=== PATIENT | male | born 1950 | race Asian ===

== ENCOUNTER → 2016-07-30 | Outpatient (CLI) | payer MEDICARE ==
[~2016-07-30] MED LIST: COLC0.6T69 PO; NAPR-58 PO; NAPR220T57 PO
[2016-07-30 14:46] LABS: BASOPHILS % (AUTO) 0.5 % (0.0-2.0); EOSINOPHILS % (AUTO) 1.7 % (1.0-6.0); LYMPHOCYTES # (AUTO) 0.6 K/uL (1.0-4.8); LYMPHOCYTES % (AUTO) 11.6 % (22.0-44.0); MEAN CORPUSCULAR HEMOGLOBIN 28.3 pg (26.0-34.0); MEAN CORPUSCULAR HGB CONC 31.9 G/dL (31.0-37.0); MEAN CORPUSCULAR VOLUME 89 fL (80-100); MONOCYTES # (AUTO) 0.7 K/uL (0.1-1.0); MONOCYTES % (AUTO) 12.7 % (2.0-9.0); NEUTROPHILS # (AUTO) 3.9 K/uL (1.8-7.7); NEUTROPHILS % (AUTO) 73.5 % (40.0-70.0); PLATELET COUNT (AUTO) 169 K/uL (150-450); RED BLOOD CELL COUNT(AUTO) 4.95 MIL/uL (4.50-5.90); RED CELL DISTRIBUTION WIDTH 19.4 % (11.5-14.5); WHITE BLOOD COUNT (AUTO) 5.3 K/uL (4.5-11.0)
[2016-07-30 14:48] LABS: ADD UA MICROSCOPIC YES; APPEARANCE,URINE CLEAR (CLEAR); GLUCOSE, URINE (UA) NEGATIVE (NEGATIVE); KETONES,URINE NEGATIVE (NEGATIVE); LEUKOCYTE ESTERASE ,URINE NEGATIVE (NEGATIVE); OCCULT BLOOD,URINE TRACE (NEGATIVE); PH,URINE 5.5 (5.0-8.0); PROTEIN,URINE POS 1+ (NEGATIVE)
[2016-07-30 14:52] LABS: RBC,URINE 0-2 /HPF (0-2); WBC,URINE 0-2 /HPF (0-5)
[2016-07-30 14:58] LABS: ALBUMIN 3.5 g/dL (3.4-5.0); CALCIUM, TOTAL 8.7 mg/dL (8.8-10.5); CREATININE 3.06 mg/dL (0.60-1.30); PHOSPHORUS 6.6 mg/dL (2.5-4.9); POTASSIUM 5.2 mmol/L (3.5-5.1)
[2016-07-30 15:31] LABS: RBC MORPHOLOGY COMMENT ABNORMAL RBC MORPH
[2016-07-30 16:14] LABS: URIC ACID 15.5 mg/dL (2.6-7.2)
[2016-07-31 18:20] LABS: CREATININE, URINE (mALB) 89.6 mg/dL (Not Estab.)
== END | disposition home or self-care (01) ==
LOC: LABPV 11:40
PROVIDERS: ATTEND Internal Medicine Nephrology
DX: I10 Essential (primary) hypertension (principal); N40.0 Benign prostatic hyperplasia without lower urinary tract symptoms; M1A.00X0 Idiopathic chronic gout, unspecified site, without tophus (tophi)
CPT/HCPCS: 82043; 82570; 84550

== ENCOUNTER → 2016-09-13 | Outpatient (CLI) | payer MEDICARE ==
[2016-09-13 15:18] LABS: ALBUMIN 3.6 g/dL (3.4-5.0); BILIRUBIN,TOTAL 1.8 mg/dL (0.1-1.0); CALCIUM, TOTAL 9.2 mg/dL (8.8-10.5); CHOL/HDL RATIO 3.9 (4.2-7.3); CREATININE 2.11 mg/dL (0.60-1.30); PHOSPHORUS 4.8 mg/dL (2.5-4.9); POTASSIUM 5.3 mmol/L (3.5-5.1); TOTAL PROTEIN, SERUM 7.7 g/dL (6.4-8.2)
== END | disposition home or self-care (01) ==
LOC: LABPV 11:25
PROVIDERS: ATTEND Internal Medicine Nephrology
DX: I10 Essential (primary) hypertension (principal); N40.0 Benign prostatic hyperplasia without lower urinary tract symptoms; M1A.00X0 Idiopathic chronic gout, unspecified site, without tophus (tophi); E55.9 Vitamin D deficiency, unspecified
CPT/HCPCS: 81050; 82306; 82575; 83970; 84100; 84156; 84300

== ENCOUNTER → 2016-10-20 | Outpatient (CLI) | payer MEDICARE ==
[2016-10-20 11:31] LABS: CALCIUM, TOTAL 8.4 mg/dL (8.8-10.5); CREATININE 2.77 mg/dL (0.60-1.30); PHOSPHORUS 5.7 mg/dL (2.5-4.9); POTASSIUM 4.4 mmol/L (3.5-5.1); URIC ACID 6.8 mg/dL (2.6-7.2)
[2016-10-21 10:43] LABS: ALBUMIN (IFE & ELECTROPHOR) 3.9 g/dL (2.9-4.4); ALBUMIN/GLOBULIN RATIO (IFE) 1.2 (0.7-1.7); ALPHA-2 (IFE & PEP) 0.5 g/dL (0.4-1.0); IGG (IMMUNOFIXATION) 1482 mg/dL (700-1600); M-SPIKE (IEP) Not Observed g/dL (Not Observed); TOTAL PROTEIN 7.2 g/dL (6.0-8.5)
[2016-10-21 12:20] LABS: BETA URINE 17.9 %; GAMMA URINE 18.1 %; TOTAL PROTEIN URINE 69.1 mg/dL (Not Estab.); UPEP M-SPIKE % Not Observed % (Not Observed)
[2016-10-22 08:40] LABS: COMPLEMENT C3 110 mg/dL (82-167); COMPLEMENT C4 23 mg/dL (14-44)
== END | disposition home or self-care (01) ==
LOC: LABPV 09:37
PROVIDERS: ATTEND Internal Medicine Nephrology
DX: I12.9 Hypertensive chronic kidney disease with stage 1 through stage 4 chronic kidney disease, or unspecified chronic kidney disease (principal); N18.3 Chronic kidney disease, stage 3 (moderate); N40.0 Benign prostatic hyperplasia without lower urinary tract symptoms
CPT/HCPCS: 82784; 84100; 84155; 84156; 84165; 84166; 84550; 86160; 86334; 86335

== ENCOUNTER → 2016-11-18 | Outpatient (CLI) | payer MEDICARE | END | disposition home or self-care (01) | LOC: RADPV 10:22 | PROVIDERS: ATTEND Internal Medicine Nephrology | DX: R18.8 Other ascites (principal); N26.1 Atrophy of kidney (terminal); K82.8 Other specified diseases of gallbladder | CPT/HCPCS: 76700 ==

== ENCOUNTER → 2016-11-22 | Outpatient (CLI) | payer MEDICARE ==
[2016-11-22 12:04] LABS: CREATININE 2.06 mg/dL (0.60-1.30); POTASSIUM 4.7 mmol/L (3.5-5.1)
[2016-11-22 12:05] LABS: ALBUMIN 3.6 g/dL (3.4-5.0); BILIRUBIN,TOTAL 1.7 mg/dL (0.1-1.0); CALCIUM, TOTAL 8.9 mg/dL (8.8-10.5); TOTAL PROTEIN, SERUM 7.7 g/dL (6.4-8.2)
== END | disposition home or self-care (01) ==
LOC: LABPV 09:18
PROVIDERS: ATTEND Internal Medicine Nephrology
DX: I12.9 Hypertensive chronic kidney disease with stage 1 through stage 4 chronic kidney disease, or unspecified chronic kidney disease (principal); N18.3 Chronic kidney disease, stage 3 (moderate); N40.0 Benign prostatic hyperplasia without lower urinary tract symptoms; E55.9 Vitamin D deficiency, unspecified
CPT/HCPCS: 81050; 82575; 84156; 84300

== ENCOUNTER → 2016-12-02 | Outpatient (CLI) | payer MEDICARE | END | disposition home or self-care (01) | LOC: RADPV 09:15 | PROVIDERS: ATTEND Family Medicine | DX: I51.7 Cardiomegaly (principal); I70.0 Atherosclerosis of aorta | CPT/HCPCS: 71020 ==

== ENCOUNTER → 2016-12-20 | Outpatient (CLI) | payer MEDICARE ==
[~2016-12-20] MED LIST changes: +ALLO100T PO; +FURO20TA4 PO
[2016-12-20 16:30] LABS: ALBUMIN 3.4 g/dL (3.4-5.0); BILIRUBIN,TOTAL 1.5 mg/dL (0.1-1.0); CALCIUM, TOTAL 8.7 mg/dL (8.8-10.5); CREATININE 2.07 mg/dL (0.60-1.30); POTASSIUM 4.2 mmol/L (3.5-5.1); TOTAL PROTEIN, SERUM 7.7 g/dL (6.4-8.2)
[2016-12-20 17:18] LABS: BASOPHILS % (AUTO) 0.8 % (0.0-2.0); EOSINOPHILS % (AUTO) 6.1 % (1.0-6.0); HEMATOCRIT 33.8 % (41-53); HEMOGLOBIN 10.9 g/dL (13.5-17.5); LYMPHOCYTES # (AUTO) 0.6 K/uL (1.0-4.8); LYMPHOCYTES % (AUTO) 10.4 % (22.0-44.0); MEAN CORPUSCULAR HEMOGLOBIN 30.9 pg (26.0-34.0); MEAN CORPUSCULAR HGB CONC 32.3 G/dL (31.0-37.0); MEAN CORPUSCULAR VOLUME 96 fL (80-100); MONOCYTES # (AUTO) 0.5 K/uL (0.1-1.0); MONOCYTES % (AUTO) 8.8 % (2.0-9.0); NEUTROPHILS % (AUTO) 73.9 % (40.0-70.0); PLATELET COUNT (AUTO) 214 K/uL (150-450); RED BLOOD CELL COUNT(AUTO) 3.54 MIL/uL (4.50-5.90); RED CELL DISTRIBUTION WIDTH 21.4 % (11.5-14.5); WHITE BLOOD COUNT (AUTO) 5.4 K/uL (4.5-11.0)
[2016-12-20 17:30] LABS: INR 1.1 (0.9-1.1)
[2016-12-20 18:12] LABS: RBC MORPHOLOGY COMMENT ABNORMAL RBC MORPH
[2016-12-21 07:21] LABS: HEPATITIS Bs ANTIGEN SCREEN P Negative (Negative); HEPATITIS C AB SCREEN <0.1 s/co ratio (0.0-0.9)
== END | disposition home or self-care (01) ==
LOC: LABPV 15:19
PROVIDERS: ATTEND Internal Medicine Gastroenterology
DX: K70.0 Alcoholic fatty liver (principal); K74.5 Biliary cirrhosis, unspecified; K80.51 Calculus of bile duct without cholangitis or cholecystitis with obstruction; K76.6 Portal hypertension
CPT/HCPCS: 80074; 81256; 82103; 82105; 82390

== ENCOUNTER → 2017-03-14 | Outpatient (CLI) | payer MEDICARE ==
[~2017-03-14] MED LIST changes: +COLC0.6T67 PO; -COLC0.6T69 PO; -NAPR-58 PO; -NAPR220T57 PO
[2017-03-14 13:58] LABS: CREATININE,URINE RANDOM 18.3 mg/dL (30.0-125.0)
[2017-03-14 14:22] LABS: CALCIUM, TOTAL 8.8 mg/dL (8.8-10.5); CREATININE 1.81 mg/dL (0.60-1.30); PHOSPHORUS 4.8 mg/dL (2.5-4.9); POTASSIUM 4.4 mmol/L (3.5-5.1)
== END | disposition home or self-care (01) ==
LOC: LABPV 13:10
PROVIDERS: ATTEND Internal Medicine Nephrology
DX: N18.3 Chronic kidney disease, stage 3 (moderate) (principal); E55.9 Vitamin D deficiency, unspecified
CPT/HCPCS: 82306; 82570; 84100; 84156

== ENCOUNTER → 2017-06-16 | Outpatient (CLI) | payer MEDICARE ==
[2017-06-16 11:38] LABS: ALBUMIN 3.9 g/dL (3.4-5.0); BILIRUBIN,TOTAL 0.4 mg/dL (0.1-1.0); CALCIUM, TOTAL 9.4 mg/dL (8.8-10.5); CHOL/HDL RATIO 3.7 (4.2-7.3); CREATININE 2.56 mg/dL (0.60-1.30); PHOSPHORUS 5.2 mg/dL (2.5-4.9); POTASSIUM 5.2 mmol/L (3.5-5.1); TOTAL PROTEIN, SERUM 8.7 g/dL (6.4-8.2)
[2017-06-16 11:41] LABS: APPEARANCE,URINE CLEAR (CLEAR); BILIRUBIN,URINE NEGATIVE (NEGATIVE); GLUCOSE, URINE (UA) NEGATIVE (NEGATIVE); KETONES,URINE NEGATIVE (NEGATIVE); LEUKOCYTE ESTERASE ,URINE NEGATIVE (NEGATIVE); NITRATE,URINE NEGATIVE (NEGATIVE); OCCULT BLOOD,URINE NEGATIVE (NEGATIVE); PH,URINE 5.5 (5.0-8.0); PROTEIN,URINE TRACE (NEGATIVE); UROBILINOGEN,URINE 0.2 mg/dL (<=1.0)
== END | disposition home or self-care (01) ==
LOC: LABPV 10:52
PROVIDERS: ATTEND Internal Medicine Nephrology
DX: N18.3 Chronic kidney disease, stage 3 (moderate) (principal); I42.9 Cardiomyopathy, unspecified; E78.5 Hyperlipidemia, unspecified
CPT/HCPCS: 84100

== ENCOUNTER → 2017-08-10 | Outpatient (CLI) | payer MEDICARE ==
[2017-08-10 14:38] LABS: CREATININE,URINE RANDOM 63.1 mg/dL (30.0-125.0)
[2017-08-10 14:54] LABS: ALBUMIN 3.8 g/dL (3.4-5.0); BILIRUBIN,TOTAL 0.5 mg/dL (0.1-1.0); CALCIUM, TOTAL 9.3 mg/dL (8.8-10.5); CREATININE 1.99 mg/dL (0.60-1.30); POTASSIUM 4.5 mmol/L (3.5-5.1); TOTAL PROTEIN, SERUM 8.1 g/dL (6.4-8.2)
== END | disposition home or self-care (01) ==
LOC: LABPV 11:00
PROVIDERS: ATTEND Internal Medicine Nephrology
DX: I12.9 Hypertensive chronic kidney disease with stage 1 through stage 4 chronic kidney disease, or unspecified chronic kidney disease (principal); N18.3 Chronic kidney disease, stage 3 (moderate); N40.0 Benign prostatic hyperplasia without lower urinary tract symptoms; E55.9 Vitamin D deficiency, unspecified
CPT/HCPCS: 82306; 82570; 84156

== ENCOUNTER → 2017-12-01 | Outpatient (CLI) | payer MEDICARE ==
[2017-12-01 10:24] LABS: ALBUMIN 3.8 g/dL (3.4-5.0); BILIRUBIN,TOTAL 0.5 mg/dL (0.1-1.0); CALCIUM, TOTAL 9.1 mg/dL (8.8-10.5); CREATININE 2.67 mg/dL (0.60-1.30); POTASSIUM 4.9 mmol/L (3.5-5.1); TOTAL PROTEIN, SERUM 8.3 g/dL (6.4-8.2)
== END | disposition home or self-care (01) ==
LOC: LABPV 09:35
PROVIDERS: ATTEND Internal Medicine Nephrology
DX: N18.3 Chronic kidney disease, stage 3 (moderate) (principal); E55.9 Vitamin D deficiency, unspecified; M1A.00X0 Idiopathic chronic gout, unspecified site, without tophus (tophi)
CPT/HCPCS: 82306

== ENCOUNTER → 2018-09-11 | Outpatient (CLI) | payer MEDICARE ==
[2018-09-11 14:10] LABS: CREATININE,URINE RANDOM 98.2 mg/dL (30.0-125.0); PROTEIN,URINE RANDOM 34 mg/dL (0-11.9)
[2018-09-11 14:14] LABS: ALBUMIN 3.6 g/dL (3.4-5.0); BILIRUBIN,TOTAL 1.1 mg/dL (0.1-1.0); CALCIUM, TOTAL 8.6 mg/dL (8.8-10.5); CHOL/HDL RATIO 4.1 (4.2-7.3); CREATININE 4.79 mg/dL (0.60-1.30); POTASSIUM 5.2 mmol/L (3.5-5.1); TOTAL PROTEIN, SERUM 7.2 g/dL (6.4-8.2)
[2018-09-11 14:41] LABS: APPEARANCE,URINE CLEAR (CLEAR); BILIRUBIN,URINE NEGATIVE (NEGATIVE); GLUCOSE, URINE (UA) NEGATIVE (NEGATIVE); KETONES,URINE NEGATIVE (NEGATIVE); LEUKOCYTE ESTERASE ,URINE TRACE (NEGATIVE); NITRATE,URINE NEGATIVE (NEGATIVE); OCCULT BLOOD,URINE SMALL (NEGATIVE); PROTEIN,URINE NEGATIVE (NEGATIVE); UROBILINOGEN,URINE 0.2 mg/dL (<=1.0)
[2018-09-11 14:49] LABS: BACTERIA,URINE None Seen /HPF (None Seen); WBC,URINE 0-2 /HPF (0-5)
== END | disposition home or self-care (01) ==
LOC: LABPV 09:37
PROVIDERS: ATTEND Internal Medicine Nephrology
DX: E55.9 Vitamin D deficiency, unspecified (principal); I12.9 Hypertensive chronic kidney disease with stage 1 through stage 4 chronic kidney disease, or unspecified chronic kidney disease; E11.22 Type 2 diabetes mellitus with diabetic chronic kidney disease; N18.3 Chronic kidney disease, stage 3 (moderate); E78.49 Other hyperlipidemia
CPT/HCPCS: 82306; 82570; 83970; 84156

== ENCOUNTER 2018-10-03 12:48 | Inpatient (IN) | payer MEDICARE ==
[~2018-10-03] VITALS: Ht 162.6 cm; Wt 81.2 kg
[2018-10-03] MEDS ORDERED: AMLO-511 PO (13:35)
[2018-10-03] MEDS ORDERED: CARV3 PO (13:35)
[2018-10-03] MEDS ORDERED: SODI650T PO (13:35)
[2018-10-03] MEDS ORDERED: ASPI81 PO (13:35)
[2018-10-03 15:06] LABS: BASOPHILS % (AUTO) 0.8 % (0.0-2.0); EOSINOPHILS % (AUTO) 12.6 % (1.0-6.0); HEMATOCRIT 35.3 % (41-53); HEMOGLOBIN 11.1 g/dL (13.5-17.5); LYMPHOCYTES # (AUTO) 0.6 K/uL (1.0-4.8); LYMPHOCYTES % (AUTO) 13.7 % (22.0-44.0); MEAN CORPUSCULAR HEMOGLOBIN 29.8 pg (26.0-34.0); MEAN CORPUSCULAR HGB CONC 31.5 G/dL (31.0-37.0); MEAN CORPUSCULAR VOLUME 95 fL (80-100); MONOCYTES # (AUTO) 0.5 K/uL (0.1-1.0); MONOCYTES % (AUTO) 11.2 % (2.0-9.0); NEUTROPHILS # (AUTO) 2.9 K/uL (1.8-7.7); NEUTROPHILS % (AUTO) 61.7 % (40.0-70.0); PLATELET COUNT (AUTO) 146 K/uL (150-450); RED BLOOD CELL COUNT(AUTO) 3.73 MIL/uL (4.50-5.90); RED CELL DISTRIBUTION WIDTH 17.4 % (11.5-14.5)
[2018-10-03 15:16] LABS: ALBUMIN 3.7 g/dL (3.4-5.0); BILIRUBIN,TOTAL 1.2 mg/dL (0.1-1.0); CALCIUM, TOTAL 8.8 mg/dL (8.8-10.5); CREATININE 4.47 mg/dL (0.60-1.30); POTASSIUM 5.9 mmol/L (3.5-5.1); TOTAL PROTEIN, SERUM 7.9 g/dL (6.4-8.2)
[2018-10-03 15:58] LABS: APPEARANCE,URINE CLEAR (CLEAR); BILIRUBIN,URINE NEGATIVE (NEGATIVE); GLUCOSE, URINE (UA) NEGATIVE (NEGATIVE); KETONES,URINE NEGATIVE (NEGATIVE); LEUKOCYTE ESTERASE ,URINE NEGATIVE (NEGATIVE); NITRATE,URINE NEGATIVE (NEGATIVE); OCCULT BLOOD,URINE NEGATIVE (NEGATIVE); PROTEIN,URINE NEGATIVE (NEGATIVE); UROBILINOGEN,URINE 0.2 mg/dL (<=1.0)
[2018-10-03 16:21] LABS: BACTERIA,URINE Few /HPF (None Seen); RBC,URINE 0-2 /HPF (0-2); SQUAMOUS EPITHELIAL CELL,UR Few /LPF (None Seen); WBC,URINE 0-2 /HPF (0-5)
[2018-10-03 16:22] LABS: INR 1.1 (0.9-1.1)
[2018-10-03] MEDS ORDERED: SODIUM POLYSTYRENE SULFONATE 15 GM/60 ML SUSPENSION BOTTLE PO ONE (16:45)
[2018-10-03] MEDS: ALBUMIN HUMAN 25%-25GM/100ML 100 ML IV SCH ×2 (17:18→23:41)
[2018-10-03 18:27] VITALS: BP 154/101
[2018-10-03] MEDS ORDERED: MORPHINE SULFATE 2 MG/ML SYRINGE IVP PRN (19:30)
[2018-10-03] MEDS ORDERED: IPRATROPIUM BROMIDE 0.5 MG/2.5 ML NEB SOLUTION NEB PRN (19:30)
[2018-10-03] MEDS ORDERED: MAGNESIUM HYDROXIDE SUSPENSION 30 ML UDCUP PO PRN (19:30)
[2018-10-03] MEDS ORDERED: ONDANSETRON HCL 4 MG/2 ML VIAL IVP PRN (19:30)
[2018-10-03] MEDS ORDERED: BISACODYL 10 MG RECTAL RECTAL SUPPOSITORY PR PRN (19:30)
[2018-10-03] MEDS ORDERED: ALBUTEROL SULFATE 2.5 MG/0.5 ML NEB SOLUTION NEB PRN (19:30)
[2018-10-03] MEDS ORDERED: ACETAMINOPHEN 325 MG TABLET PO PRN (19:30)
[2018-10-03] MEDS ORDERED: ZOLPIDEM TARTRATE 5 MG TABLET PO PRN (19:30)
[2018-10-03] MEDS ORDERED: HYDROCODONE/ACETAMINOPHEN 5-325 MG TABLET PO PRN (19:30)
[2018-10-03] MEDS ORDERED: BUMETANIDE 0.25 MG/ML 4 ML VIAL IVP SCH (21:00)
[2018-10-03 22:00] VITALS: BP 153/112
[2018-10-03] MEDS: COLCHICINE 0.6 MG TABLET PO SCH (23:01)
[2018-10-03] MEDS: DOCUSATE SODIUM 100 MG CAPSULE PO SCH (23:01)
[2018-10-03] MEDS: CARVEDILOL 3.125 MG TABLET PO SCH (23:01)
[2018-10-03] MEDS: SODIUM BICARBONATE 650 MG TABLET PO SCH (23:02)
[2018-10-03] MEDS: BUMETANIDE 0.25 MG/ML 10 ML VIAL IV SCH (23:03)
[2018-10-03] MEDS: HEPARIN SODIUM,PORCINE 5,000 UNITS/ML VIAL SQ SCH (23:05)
[2018-10-04] MEDS ORDERED: PNEUMOCOCCAL VACCINE POLYVALENT 0.5 ML VIAL [PPSV23] IM ONE (03:30)
[2018-10-04 03:55] VITALS: BP 144/96
[2018-10-04] MEDS: ALBUMIN HUMAN 25%-25GM/100ML 100 ML IV SCH ×4 (04:55→22:22)
[2018-10-04 08:33] VITALS: BP 154/88
[2018-10-04] MEDS: ASPIRIN 81 MG CHEWABLE TABLET PO SCH (08:44)
[2018-10-04] MEDS: FUROSEMIDE 20 MG TABLET PO SCH (08:44)
[2018-10-04] MEDS: HEPARIN SODIUM,PORCINE 5,000 UNITS/ML VIAL SQ SCH ×2 (08:45→16:00)
[2018-10-04] MEDS: DOCUSATE SODIUM 100 MG CAPSULE PO SCH ×3 (08:45→20:14)
[2018-10-04] MEDS: PANTOPRAZOLE SODIUM 40 MG/VIAL IVP SCH (08:47)
[2018-10-04] MEDS: BUMETANIDE 0.25 MG/ML 10 ML VIAL IV SCH ×2 (08:47→20:05)
[2018-10-04] MEDS: AmLODIPine BESYLATE 5 MG TABLET PO SCH (08:49)
[2018-10-04] MEDS: SODIUM BICARBONATE 650 MG TABLET PO SCH ×2 (08:49→20:05)
[2018-10-04] MEDS: ALLOPURINOL 100 MG TABLET PO SCH (08:51)
[2018-10-04] MEDS: COLCHICINE 0.6 MG TABLET PO SCH ×2 (08:51→20:05)
[2018-10-04] MEDS: CARVEDILOL 3.125 MG TABLET PO SCH ×2 (08:52→20:05)
[2018-10-04 12:00] LABS: SPECIMENTYPE,BODY FLUID ASCITES
[2018-10-04 12:36] LABS: APPEARANCE,SPUN,BODY FLUID CLEAR (CLEAR); APPEARANCE,UNSPUN,BODY FLUID HAZY (CLEAR); COLOR,BODY FLUID ORANGE (LT YELLOW); TOTAL VOLUME,BODY FLUID 2950 mL
[2018-10-04 13:07] LABS: BASOPHILS,BODY FLUID 0 %; EOSINOPHILS,BF (ANAL) 0 %; LYMPHOCYTES,BODY FLUID 58 %; MONOCYTES,BODY FLUID 31 %; NEUTROPHILS,BODY FLUID 11 %; WBC, BODY FLUID 50 /cu. mm.
[2018-10-04 16:24] VITALS: BP 138/80
[2018-10-04 20:15] VITALS: BP 133/87
[2018-10-04 23:49] LABS: APPEARANCE,URINE CLEAR (CLEAR); BILIRUBIN,URINE NEGATIVE (NEGATIVE); GLUCOSE, URINE (UA) NEGATIVE (NEGATIVE); KETONES,URINE NEGATIVE (NEGATIVE); LEUKOCYTE ESTERASE ,URINE NEGATIVE (NEGATIVE); NITRATE,URINE NEGATIVE (NEGATIVE); OCCULT BLOOD,URINE NEGATIVE (NEGATIVE); PROTEIN,URINE NEGATIVE (NEGATIVE); UROBILINOGEN,URINE 0.2 mg/dL (<=1.0)
[2018-10-04 23:53] LABS: CREATININE,URINE RANDOM 47.2 mg/dL (30.0-125.0); SODIUM,URINE RANDOM 82 mmol/l (20-110); UREA NITROGEN,URINE RANDOM 355 mg/dL (350-1000)
[2018-10-05] LABS: BACTERIA,URINE None Seen /HPF (None Seen); RBC,URINE None Seen /HPF (0-2); SQUAMOUS EPITHELIAL CELL,UR Rare /LPF (None Seen); WBC,URINE 0-2 /HPF (0-5)
[2018-10-05] MEDS: HEPARIN SODIUM,PORCINE 5,000 UNITS/ML VIAL SQ SCH ×3 (00:23→15:19)
[2018-10-05 00:33] VITALS: BP 146/72
[2018-10-05] MEDS: ALBUMIN HUMAN 25%-25GM/100ML 100 ML IV SCH (04:33)
[2018-10-05 05:27] VITALS: BP 141/74
[2018-10-05 06:06] LABS: BASOPHILS % (AUTO) 2.6 % (0.0-2.0); EOSINOPHILS % (AUTO) 11.3 % (1.0-6.0); HEMATOCRIT 31.8 % (41-53); HEMOGLOBIN 10.2 g/dL (13.5-17.5); LYMPHOCYTES # (AUTO) 0.5 K/uL (1.0-4.8); LYMPHOCYTES % (AUTO) 14.8 % (22.0-44.0); MEAN CORPUSCULAR HEMOGLOBIN 30.6 pg (26.0-34.0); MEAN CORPUSCULAR HGB CONC 32.2 G/dL (31.0-37.0); MEAN CORPUSCULAR VOLUME 95 fL (80-100); MONOCYTES # (AUTO) 0.4 K/uL (0.1-1.0); MONOCYTES % (AUTO) 12.9 % (2.0-9.0); NEUTROPHILS % (AUTO) 58.4 % (40.0-70.0); PLATELET COUNT (AUTO) 128 K/uL (150-450); RED BLOOD CELL COUNT(AUTO) 3.35 MIL/uL (4.50-5.90); RED CELL DISTRIBUTION WIDTH 17.2 % (11.5-14.5)
[2018-10-05 06:27] LABS: ALBUMIN 4.5 g/dL (3.4-5.0); BILIRUBIN,TOTAL 1.4 mg/dL (0.1-1.0); CALCIUM, TOTAL 8.6 mg/dL (8.8-10.5); CREATININE 4.48 mg/dL (0.60-1.30); POTASSIUM 4.2 mmol/L (3.5-5.1); TOTAL PROTEIN, SERUM 7.5 g/dL (6.4-8.2)
[2018-10-05 07:41] VITALS: BP 148/83
[2018-10-05] MEDS: PANTOPRAZOLE SODIUM 40 MG/VIAL IVP SCH (08:20)
[2018-10-05] MEDS: BUMETANIDE 0.25 MG/ML 10 ML VIAL IV SCH ×2 (08:21→21:12)
[2018-10-05] MEDS: ASPIRIN 81 MG CHEWABLE TABLET PO SCH (08:21)
[2018-10-05] MEDS: COLCHICINE 0.6 MG TABLET PO SCH ×2 (08:23→21:11)
[2018-10-05] MEDS: AmLODIPine BESYLATE 5 MG TABLET PO SCH (08:23)
[2018-10-05] MEDS: ALLOPURINOL 100 MG TABLET PO SCH (08:24)
[2018-10-05] MEDS: SODIUM BICARBONATE 650 MG TABLET PO SCH ×2 (08:24→21:10)
[2018-10-05] MEDS: CARVEDILOL 3.125 MG TABLET PO SCH ×2 (08:24→21:00)
[2018-10-05] MEDS: DOCUSATE SODIUM 100 MG CAPSULE PO SCH ×2 (08:25→21:00)
[2018-10-05] MEDS: FUROSEMIDE 20 MG TABLET PO SCH (08:26)
[2018-10-05] MEDS ORDERED: METOLAZONE 5 MG TABLET PO ONE (09:15)
[2018-10-05 11:12] VITALS: BP 127/75
[2018-10-05 15:55] VITALS: BP 124/70
[2018-10-05 20:25] VITALS: BP 123/69
[2018-10-06] MEDS: HEPARIN SODIUM,PORCINE 5,000 UNITS/ML VIAL SQ SCH ×3 (00:18→16:00)
[2018-10-06 00:47] VITALS: BP 140/86
[2018-10-06 05:00] VITALS: BP 138/76
[2018-10-06 07:16] LABS: BASOPHILS % (AUTO) 0.8 % (0.0-2.0); EOSINOPHILS % (AUTO) 10.6 % (1.0-6.0); HEMATOCRIT 30.5 % (41-53); HEMOGLOBIN 9.5 g/dL (13.5-17.5); LYMPHOCYTES # (AUTO) 0.5 K/uL (1.0-4.8); LYMPHOCYTES % (AUTO) 14.8 % (22.0-44.0); MEAN CORPUSCULAR HEMOGLOBIN 29.8 pg (26.0-34.0); MEAN CORPUSCULAR VOLUME 96 fL (80-100); MONOCYTES # (AUTO) 0.5 K/uL (0.1-1.0); MONOCYTES % (AUTO) 12.9 % (2.0-9.0); NEUTROPHILS # (AUTO) 2.2 K/uL (1.8-7.7); NEUTROPHILS % (AUTO) 60.9 % (40.0-70.0); PLATELET COUNT (AUTO) 142 K/uL (150-450); RED BLOOD CELL COUNT(AUTO) 3.18 MIL/uL (4.50-5.90); RED CELL DISTRIBUTION WIDTH 17.9 % (11.5-14.5)
[2018-10-06 07:44] VITALS: BP 165/97
[2018-10-06 07:44] LABS: ALBUMIN 4.1 g/dL (3.4-5.0); BILIRUBIN,TOTAL 1.1 mg/dL (0.1-1.0); CALCIUM, TOTAL 8.6 mg/dL (8.8-10.5); CREATININE 4.76 mg/dL (0.60-1.30); MAGNESIUM 2.2 mg/dL (1.80-2.40); POTASSIUM 4.3 mmol/L (3.5-5.1)
[2018-10-06 08:05] LABS: PHOSPHORUS 9.5 mg/dL (2.5-4.9)
[2018-10-06] MEDS: ALLOPURINOL 100 MG TABLET PO SCH (08:18)
[2018-10-06] MEDS: COLCHICINE 0.6 MG TABLET PO SCH ×2 (08:18→22:01)
[2018-10-06] MEDS: AmLODIPine BESYLATE 5 MG TABLET PO SCH (08:19)
[2018-10-06] MEDS: ASPIRIN 81 MG CHEWABLE TABLET PO SCH (08:19)
[2018-10-06] MEDS: DOCUSATE SODIUM 100 MG CAPSULE PO SCH ×2 (08:19→21:00)
[2018-10-06] MEDS: BUMETANIDE 0.25 MG/ML 10 ML VIAL IV SCH ×2 (08:21→22:01)
[2018-10-06] MEDS: PANTOPRAZOLE SODIUM 40 MG/VIAL IVP SCH (08:21)
[2018-10-06] MEDS: CARVEDILOL 3.125 MG TABLET PO SCH ×2 (08:22→22:01)
[2018-10-06 11:48] VITALS: BP 143/70
[2018-10-06] MEDS: SODIUM BICARBONATE 650 MG TABLET PO SCH ×2 (12:00→22:01)
[2018-10-06] MEDS: METOLAZONE 5 MG TABLET PO SCH (12:01)
[2018-10-06 13:11] LABS: CREATININE,URINE 39.4 mg/dL (30.0-125.0)
[2018-10-06 13:14] LABS: CREATININE,SERUM FOR CRCL 4.76 mg/dL (0.60-1.30)
[2018-10-06 15:48] VITALS: BP 127/69
[2018-10-06 20:44] VITALS: BP 114/44
[2018-10-07 00:44] VITALS: BP 137/79
[2018-10-07 04:05] VITALS: BP 135/73
[2018-10-07] MEDS: HEPARIN SODIUM,PORCINE 5,000 UNITS/ML VIAL SQ SCH ×3 (08:00→16:00)
[2018-10-07 08:32] VITALS: BP 119/70
[2018-10-07] MEDS: ALLOPURINOL 100 MG TABLET PO SCH (09:00)
[2018-10-07] MEDS: CARVEDILOL 3.125 MG TABLET PO SCH ×2 (09:00→20:47)
[2018-10-07] MEDS: PANTOPRAZOLE SODIUM 40 MG/VIAL IVP SCH (09:53)
[2018-10-07] MEDS: DOCUSATE SODIUM 100 MG CAPSULE PO SCH ×2 (09:54→20:48)
[2018-10-07] MEDS: METOLAZONE 5 MG TABLET PO SCH (09:54)
[2018-10-07] MEDS: ASPIRIN 81 MG CHEWABLE TABLET PO SCH (09:54)
[2018-10-07] MEDS: COLCHICINE 0.6 MG TABLET PO SCH (09:55)
[2018-10-07] MEDS: BUMETANIDE 0.25 MG/ML 10 ML VIAL IV SCH ×2 (10:08→20:48)
[2018-10-07] MEDS: AmLODIPine BESYLATE 5 MG TABLET PO SCH (10:37)
[2018-10-07] MEDS: SODIUM BICARBONATE 650 MG TABLET PO SCH ×2 (10:37→20:47)
[2018-10-07] MEDS: SEVELAMER CARBONATE 800 MG TABLET PO SCH ×2 (12:00→17:48)
[2018-10-07 15:43] VITALS: BP 139/77
[2018-10-07] MEDS ORDERED: LIDOCAINE/PF 1% 30 ML VIAL ONE (15:59)
[2018-10-07] MEDS ORDERED: HEPARIN SODIUM,PORCINE 1,000 UNITS/ML 10 ML VIAL ONE (15:59)
[2018-10-07 20:46] VITALS: BP 139/73
[2018-10-08 00:18] VITALS: BP 135/75
[2018-10-08 04:45] VITALS: BP 133/73
[2018-10-08] MEDS: HEPARIN SODIUM,PORCINE 5,000 UNITS/ML VIAL SQ SCH ×3 (08:00→16:00)
[2018-10-08 08:08] VITALS: BP 129/60
[2018-10-08] MEDS: SEVELAMER CARBONATE 800 MG TABLET PO SCH ×3 (08:19→17:45)
[2018-10-08] MEDS: SODIUM BICARBONATE 650 MG TABLET PO SCH (08:20)
[2018-10-08] MEDS: PANTOPRAZOLE SODIUM 40 MG/VIAL IVP SCH (08:20)
[2018-10-08] MEDS: DOCUSATE SODIUM 100 MG CAPSULE PO SCH ×2 (08:21→20:56)
[2018-10-08] MEDS: ALLOPURINOL 100 MG TABLET PO SCH (08:26)
[2018-10-08] MEDS: CARVEDILOL 3.125 MG TABLET PO SCH ×2 (09:00→20:56)
[2018-10-08 11:41] VITALS: BP 142/63
[2018-10-08 13:06] LABS: EOSINOPHILS % (AUTO) 12.2 % (1.0-6.0); HEMATOCRIT 30.2 % (41-53); HEMOGLOBIN 9.9 g/dL (13.5-17.5); LYMPHOCYTES # (AUTO) 0.5 K/uL (1.0-4.8); LYMPHOCYTES % (AUTO) 13.4 % (22.0-44.0); MEAN CORPUSCULAR HEMOGLOBIN 29.9 pg (26.0-34.0); MEAN CORPUSCULAR HGB CONC 32.6 G/dL (31.0-37.0); MEAN CORPUSCULAR VOLUME 92 fL (80-100); MONOCYTES # (AUTO) 0.5 K/uL (0.1-1.0); MONOCYTES % (AUTO) 13.1 % (2.0-9.0); NEUTROPHILS # (AUTO) 2.1 K/uL (1.8-7.7); NEUTROPHILS % (AUTO) 60.3 % (40.0-70.0); PLATELET COUNT (AUTO) 103 K/uL (150-450); RED CELL DISTRIBUTION WIDTH 16.6 % (11.5-14.5)
[2018-10-08 13:32] LABS: ALBUMIN 4.1 g/dL (3.4-5.0); BILIRUBIN,TOTAL 1.4 mg/dL (0.1-1.0); CALCIUM, TOTAL 8.4 mg/dL (8.8-10.5); CREATININE 4.45 mg/dL (0.60-1.30); POTASSIUM 4.2 mmol/L (3.5-5.1); TOTAL PROTEIN, SERUM 7.4 g/dL (6.4-8.2)
[2018-10-08] MEDS: AmLODIPine BESYLATE 5 MG TABLET PO SCH (15:09)
[2018-10-08] MEDS: ASPIRIN 81 MG CHEWABLE TABLET PO SCH (15:09)
[2018-10-08] MEDS: METOLAZONE 5 MG TABLET PO SCH (15:09)
[2018-10-08 16:09] VITALS: BP 145/78
[2018-10-08] MEDS ORDERED: HEPARIN SODIUM,PORCINE 1,000 UNITS/ML VIAL IVP ONE (17:50)
[2018-10-08 20:12] VITALS: BP 122/79
[2018-10-09] VITALS (8 sets, daily range): BP systolic 115–147; BP diastolic 58–74
[2018-10-09 06:07] LABS: BASOPHILS % (AUTO) 1.4 % (0.0-2.0); EOSINOPHILS % (AUTO) 13.3 % (1.0-6.0); HEMATOCRIT 28.2 % (41-53); HEMOGLOBIN 9.3 g/dL (13.5-17.5); LYMPHOCYTES # (AUTO) 0.6 K/uL (1.0-4.8); LYMPHOCYTES % (AUTO) 16.1 % (22.0-44.0); MEAN CORPUSCULAR HEMOGLOBIN 30.1 pg (26.0-34.0); MEAN CORPUSCULAR HGB CONC 32.8 G/dL (31.0-37.0); MEAN CORPUSCULAR VOLUME 92 fL (80-100); MONOCYTES # (AUTO) 0.7 K/uL (0.1-1.0); MONOCYTES % (AUTO) 16.9 % (2.0-9.0); NEUTROPHILS % (AUTO) 52.3 % (40.0-70.0); PLATELET COUNT (AUTO) 106 K/uL (150-450); RED BLOOD CELL COUNT(AUTO) 3.08 MIL/uL (4.50-5.90); RED CELL DISTRIBUTION WIDTH 15.9 % (11.5-14.5)
[2018-10-09 06:28] LABS: ALBUMIN 3.7 g/dL (3.4-5.0); BILIRUBIN,TOTAL 1.2 mg/dL (0.1-1.0); CALCIUM, TOTAL 8.4 mg/dL (8.8-10.5); CREATININE 4.31 mg/dL (0.60-1.30); POTASSIUM 3.8 mmol/L (3.5-5.1); TOTAL PROTEIN, SERUM 6.7 g/dL (6.4-8.2)
[2018-10-09] MEDS: HEPARIN SODIUM,PORCINE 5,000 UNITS/ML VIAL SQ SCH ×3 (08:00→16:00)
[2018-10-09] MEDS: METOLAZONE 5 MG TABLET PO SCH (08:19)
[2018-10-09] MEDS: CARVEDILOL 3.125 MG TABLET PO SCH ×2 (08:19→21:22)
[2018-10-09] MEDS: AmLODIPine BESYLATE 5 MG TABLET PO SCH (08:19)
[2018-10-09] MEDS: SEVELAMER CARBONATE 800 MG TABLET PO SCH ×3 (08:20→17:57)
[2018-10-09] MEDS: ASPIRIN 81 MG CHEWABLE TABLET PO SCH (08:21)
[2018-10-09] MEDS: ALLOPURINOL 100 MG TABLET PO SCH (08:21)
[2018-10-09] MEDS: PANTOPRAZOLE SODIUM 40 MG/VIAL IVP SCH (08:21)
[2018-10-09] MEDS: DOCUSATE SODIUM 100 MG CAPSULE PO SCH ×2 (08:22→21:00)
[2018-10-09] MEDS ORDERED: HEPARIN SODIUM,PORCINE 1,000 UNITS/ML VIAL IVP ONE (12:00)
[2018-10-09] MEDS ORDERED: SODIUM CHLORIDE 0.9% 2,000 ML IV ONE (12:16)
[2018-10-10 04:15] VITALS: BP 148/81
[2018-10-10 05:42] LABS: BASOPHILS % (AUTO) 1.2 % (0.0-2.0); EOSINOPHILS % (AUTO) 12.4 % (1.0-6.0); HEMATOCRIT 29.5 % (41-53); HEMOGLOBIN 9.8 g/dL (13.5-17.5); LYMPHOCYTES # (AUTO) 0.6 K/uL (1.0-4.8); LYMPHOCYTES % (AUTO) 13.2 % (22.0-44.0); MEAN CORPUSCULAR HEMOGLOBIN 30.5 pg (26.0-34.0); MEAN CORPUSCULAR HGB CONC 33.1 G/dL (31.0-37.0); MEAN CORPUSCULAR VOLUME 92 fL (80-100); MONOCYTES # (AUTO) 0.7 K/uL (0.1-1.0); MONOCYTES % (AUTO) 16.2 % (2.0-9.0); NEUTROPHILS # (AUTO) 2.6 K/uL (1.8-7.7); RED BLOOD CELL COUNT(AUTO) 3.21 MIL/uL (4.50-5.90); RED CELL DISTRIBUTION WIDTH 15.8 % (11.5-14.5)
[2018-10-10 05:53] LABS: ALBUMIN 3.7 g/dL (3.4-5.0); BILIRUBIN,TOTAL 1.1 mg/dL (0.1-1.0); CALCIUM, TOTAL 8.7 mg/dL (8.8-10.5); CREATININE 3.53 mg/dL (0.60-1.30); POTASSIUM 3.9 mmol/L (3.5-5.1); TOTAL PROTEIN, SERUM 7.1 g/dL (6.4-8.2)
[2018-10-10 07:15] LABS: PLATELET COUNT (AUTO) 91 K/uL (150-450)
[2018-10-10 07:49] VITALS: BP 130/75
[2018-10-10] MEDS: PANTOPRAZOLE SODIUM 40 MG/VIAL IVP SCH (08:00)
[2018-10-10] MEDS: HEPARIN SODIUM,PORCINE 5,000 UNITS/ML VIAL SQ SCH ×4 (08:00→23:45)
[2018-10-10] MEDS: METOLAZONE 5 MG TABLET PO SCH (08:02)
[2018-10-10] MEDS: CARVEDILOL 3.125 MG TABLET PO SCH ×2 (08:02→20:51)
[2018-10-10] MEDS: AmLODIPine BESYLATE 5 MG TABLET PO SCH (08:02)
[2018-10-10] MEDS: ASPIRIN 81 MG CHEWABLE TABLET PO SCH (08:03)
[2018-10-10] MEDS: SEVELAMER CARBONATE 800 MG TABLET PO SCH ×3 (08:03→18:24)
[2018-10-10] MEDS: ALLOPURINOL 100 MG TABLET PO SCH (08:04)
[2018-10-10] MEDS: DOCUSATE SODIUM 100 MG CAPSULE PO SCH ×2 (08:04→20:51)
[2018-10-10] MEDS: FUROSEMIDE 80 MG TABLET PO SCH ×2 (09:48→20:51)
[2018-10-10] MEDS: EPOETIN ALFA 10,000 UNITS/ML 2 ML VIAL SQ SCH (11:27)
[2018-10-10 11:34] VITALS: BP 125/70
[2018-10-10] MEDS ORDERED: HEPARIN SODIUM,PORCINE 1,000 UNITS/ML VIAL IVP ONE (12:00)
[2018-10-10 16:04] VITALS: BP 149/77
[2018-10-10 20:10] VITALS: BP 144/68
[2018-10-11 05:00] VITALS: BP 143/88
[2018-10-11 06:19] LABS: CALCIUM, TOTAL 8.7 mg/dL (8.8-10.5); MAGNESIUM 1.5 mg/dL (1.80-2.40); PHOSPHORUS 3.8 mg/dL (2.5-4.9); POTASSIUM 3.4 mmol/L (3.5-5.1)
[2018-10-11] MEDS ORDERED: MAGNESIUM OXIDE 400 MG TABLET PO ONE (07:45)
[2018-10-11 07:49] VITALS: BP 145/76
[2018-10-11] MEDS: HEPARIN SODIUM,PORCINE 5,000 UNITS/ML VIAL SQ SCH ×2 (08:00→15:40)
[2018-10-11] MEDS: ALLOPURINOL 100 MG TABLET PO SCH (08:40)
[2018-10-11] MEDS: AmLODIPine BESYLATE 5 MG TABLET PO SCH (08:41)
[2018-10-11] MEDS: DOCUSATE SODIUM 100 MG CAPSULE PO SCH ×2 (08:41→21:00)
[2018-10-11] MEDS: ASPIRIN 81 MG CHEWABLE TABLET PO SCH (08:41)
[2018-10-11] MEDS: CARVEDILOL 3.125 MG TABLET PO SCH ×2 (08:42→21:00)
[2018-10-11] MEDS: PANTOPRAZOLE SODIUM 40 MG/VIAL IVP SCH (08:42)
[2018-10-11] MEDS: SEVELAMER CARBONATE 800 MG TABLET PO SCH ×3 (08:44→18:00)
[2018-10-11] MEDS: EPOETIN ALFA 10,000 UNITS/ML 2 ML VIAL SQ SCH (08:47)
[2018-10-12] MEDS ORDERED: SODIUM CHLORIDE 0.9% 2,000 ML IV ONE (06:58)
[2018-10-12] MEDS: HEPARIN SODIUM,PORCINE 5,000 UNITS/ML VIAL SQ SCH ×3 (08:00→15:35)
[2018-10-12] MEDS: EPOETIN ALFA 10,000 UNITS/ML 2 ML VIAL SQ SCH (08:07)
[2018-10-12] MEDS: SEVELAMER CARBONATE 800 MG TABLET PO SCH ×3 (08:07→18:07)
[2018-10-12] MEDS: DOCUSATE SODIUM 100 MG CAPSULE PO SCH ×2 (08:15→20:18)
[2018-10-12] MEDS: PANTOPRAZOLE SODIUM 40 MG/VIAL IVP SCH (08:15)
[2018-10-12] MEDS: ALLOPURINOL 100 MG TABLET PO SCH (08:16)
[2018-10-12] MEDS: CARVEDILOL 3.125 MG TABLET PO SCH ×2 (09:00→20:18)
[2018-10-12 11:19] VITALS: BP 148/73
[2018-10-12] MEDS: ASPIRIN 81 MG CHEWABLE TABLET PO SCH (12:11)
[2018-10-12] MEDS: AmLODIPine BESYLATE 5 MG TABLET PO SCH (12:11)
[2018-10-12 15:18] VITALS: BP 126/85
[2018-10-12] MEDS ORDERED: HEPARIN SODIUM,PORCINE 1,000 UNITS/ML VIAL ONE (17:48)
[2018-10-12 20:30] VITALS: BP 116/75
[2018-10-13 07:52] VITALS: BP 120/69
[2018-10-13] MEDS: HEPARIN SODIUM,PORCINE 5,000 UNITS/ML VIAL SQ SCH ×3 (08:00→16:00)
[2018-10-13] MEDS: SEVELAMER CARBONATE 800 MG TABLET PO SCH ×2 (08:19→12:06)
[2018-10-13] MEDS: AmLODIPine BESYLATE 5 MG TABLET PO SCH (08:19)
[2018-10-13] MEDS: ASPIRIN 81 MG CHEWABLE TABLET PO SCH (08:19)
[2018-10-13] MEDS: DOCUSATE SODIUM 100 MG CAPSULE PO SCH (08:19)
[2018-10-13] MEDS: CARVEDILOL 3.125 MG TABLET PO SCH (08:19)
[2018-10-13] MEDS: PANTOPRAZOLE SODIUM 40 MG/VIAL IVP SCH (08:26)
[2018-10-13] MEDS: ALLOPURINOL 100 MG TABLET PO SCH (08:26)
[2018-10-13] MEDS ORDERED: ZARO5 PO (15:10)
[2018-10-13] MEDS ORDERED: SEVEC800 PO (15:10)
== END 2018-10-13 16:55 | disposition home or self-care (01) | DRG 673 ==
LOC: EMS 12:49 → AHU 16:56 → 5S 18:00 → AHU 18:06 → 5N 20:40 → 5S 21:26
PROVIDERS: ADMIT Hospitalist; ATTEND Hospitalist
PROC: 0W9G3ZZ Drainage of Peritoneal Cavity, Percutaneous Approach (ICD-10-PCS; 2018-10-04)
PROC: 5A1D70Z Performance of Urinary Filtration, Intermittent, Less than 6 Hours Per Day (ICD-10-PCS; 2018-10-06)
PROC: 0JH63XZ Insertion of Tunneled Vascular Access Device into Chest Subcutaneous Tissue and Fascia, Percutaneous Approach (ICD-10-PCS; principal; 2018-10-07)
PROC: 02H633Z Insertion of Infusion Device into Right Atrium, Percutaneous Approach (ICD-10-PCS; 2018-10-07)
PROC: B244ZZZ Ultrasonography of Right Heart (ICD-10-PCS; 2018-10-07)
PROC: 5A1D70Z Performance of Urinary Filtration, Intermittent, Less than 6 Hours Per Day (ICD-10-PCS; 2018-10-07)
PROC: 5A1D70Z Performance of Urinary Filtration, Intermittent, Less than 6 Hours Per Day (ICD-10-PCS; 2018-10-09)
PROC: 5A1D70Z Performance of Urinary Filtration, Intermittent, Less than 6 Hours Per Day (ICD-10-PCS; 2018-10-12)
DX: N17.9 Acute kidney failure, unspecified (principal); K76.7 Hepatorenal syndrome; I50.23 Acute on chronic systolic (congestive) heart failure; I13.2 Hypertensive heart and chronic kidney disease with heart failure and with stage 5 chronic kidney disease, or end stage renal disease; E44.0 Moderate protein-calorie malnutrition; E87.2 Acidosis; R18.8 Other ascites; I42.8 Other cardiomyopathies; N18.6 End stage renal disease; I27.20 Pulmonary hypertension, unspecified; E66.01 Morbid (severe) obesity due to excess calories; E87.5 Hyperkalemia; K74.60 Unspecified cirrhosis of liver; I35.0 Nonrheumatic aortic (valve) stenosis; D64.9 Anemia, unspecified; E11.22 Type 2 diabetes mellitus with diabetic chronic kidney disease; E87.6 Hypokalemia; Z53.20 Procedure and treatment not carried out because of patient's decision for unspecified reasons; Z99.2 Dependence on renal dialysis; Z79.899 Other long term (current) drug therapy; Z79.82 Long term (current) use of aspirin; Z91.19 Patient's noncompliance with other medical treatment and regimen; Z28.21 Immunization not carried out because of patient refusal; Z68.30 Body mass index [BMI] 30.0-30.9, adult
CPT/HCPCS: 36245; 36561; 49083; 76770; 76937; 76942; 81050; 82042; 82150; 82570; 82575; 82945; 83615; 83735; 84100; 84156; 84157; 84166; 84300; 84540; 87070; 87205; 87340; 89051; 93005; 93970; C9113; G0378; J0885; J1644; J2270; J3490; J7030; P9046

== ENCOUNTER 2019-01-10 11:37 | Day surgery (SDC) | payer MEDICARE, MEDICAID ==
[~2019-01-10] VITALS: Ht 162.6 cm; Wt 68.2 kg
[~2019-01-10 11:37] MED LIST changes: +AMLO5TAB9 PO; +ASPI81 PO; +CARV3 PO; -COLC0.6T67 PO; +COLC0.6T76 PO; -FURO20TA4 PO; +RINGERS SOLUTION,LACTATED 1,000 ML IV ONE; +SEVE800T17 PO; +SODIUM CHLORIDE 0.9% 1,000 ML IV ONE; +ZARO5 PO
[2019-01-10] MEDS ORDERED: SODIUM CHLORIDE 0.9% 1,000 ML IV ONE (11:45)
[2019-01-10] MEDS ORDERED: HEPARIN SODIUM 1000 UNITS/NS 500 ML ONE (11:47)
[2019-01-10] MEDS ORDERED: LIDOCAINE/PF 1% 30 ML VIAL ONE (11:47)
[2019-01-10] MEDS ORDERED: FentaNYL CITRATE-PF 100 MCG/2 ML VIAL IVP ONE (12:00)
[2019-01-10] MEDS ORDERED: KETAMINE HCL 50 MG/ML 10 ML VIAL IVP ONE (12:00)
[2019-01-10] MEDS ORDERED: 0.9% SODIUM CHLORIDE 10 ML VIAL IVP ONE (12:00)
[2019-01-10] MEDS ORDERED: LIDOCAINE/PF 2% 5 ML VIAL INJ ONE (12:00)
[2019-01-10] MEDS ORDERED: MIDAZOLAM HCL 2 MG/2 ML VIAL IVP ONE (12:00)
[2019-01-10] MEDS ORDERED: HEPARIN SODIUM,PORCINE 1,000 UNITS/ML 10 ML VIAL IVP ONE (12:00)
[2019-01-10] MEDS ORDERED: PROPOFOL 1% 20 ML VIAL IVP ONE (12:00)
[2019-01-10 12:39] LABS: BASOPHILS % (AUTO) 0.7 % (0.0-2.0); EOSINOPHILS % (AUTO) 7.6 % (1.0-6.0); HEMATOCRIT 39.3 % (41-53); HEMOGLOBIN 12.7 g/dL (13.5-17.5); LYMPHOCYTES # (AUTO) 0.7 K/uL (1.0-4.8); MEAN CORPUSCULAR HEMOGLOBIN 31.4 pg (26.0-34.0); MEAN CORPUSCULAR HGB CONC 32.3 G/dL (31.0-37.0); MEAN CORPUSCULAR VOLUME 97 fL (80-100); MONOCYTES # (AUTO) 0.4 K/uL (0.1-1.0); MONOCYTES % (AUTO) 11.5 % (2.0-9.0); NEUTROPHILS # (AUTO) 2.3 K/uL (1.8-7.7); NEUTROPHILS % (AUTO) 61.2 % (40.0-70.0); PLATELET COUNT (AUTO) 143 K/uL (150-450); RED BLOOD CELL COUNT(AUTO) 4.03 MIL/uL (4.50-5.90)
[2019-01-10 12:43] LABS: CALCIUM, TOTAL 8.9 mg/dL (8.8-10.5); CREATININE 6.12 mg/dL (0.60-1.30); POTASSIUM 4.5 mmol/L (3.5-5.1)
[2019-01-10 12:46] LABS: INR 1.1 (0.9-1.1); PROTHROMBIN TIME 11.5 SEC (9.4-11.6)
[2019-01-10 12:49] LABS: ALBUMIN 4.1 g/dL (3.4-5.0); BILIRUBIN,TOTAL 1.6 mg/dL (0.1-1.0); TOTAL PROTEIN, SERUM 8.5 g/dL (6.4-8.2)
[2019-01-10] MEDS ORDERED: FentaNYL CITRATE-PF 100 MCG/2 ML VIAL IVP PRN (14:00)
[2019-01-10] MEDS ORDERED: MEPERIDINE-PF 25 MG/ML VIAL IVP PRN (14:00)
[2019-01-10] MEDS ORDERED: HYDROmorphone 2 MG/ML SYRINGE IVP PRN (14:00)
[2019-01-10] MEDS ORDERED: HYDR-4455 PO (18:54)
[2019-01-10] MEDS ORDERED: OXYGEN THERAPY IH SCH (20:00)
== END 2019-01-10 17:45 | disposition home or self-care (01) ==
LOC: SURGERY 11:37
PROVIDERS: ATTEND Surgery
DX: I12.0 Hypertensive chronic kidney disease with stage 5 chronic kidney disease or end stage renal disease (principal); N18.6 End stage renal disease; Z99.2 Dependence on renal dialysis; M10.9 Gout, unspecified; Z72.89 Other problems related to lifestyle; Z79.899 Other long term (current) drug therapy; Z97.3 Presence of spectacles and contact lenses; Z98.890 Other specified postprocedural states
CPT/HCPCS: 36415; 36821; 80053; 85025; 85610; 85730; 93005; J0690; J1644 ×2; J2250; J2704; J3010; J3490 ×3; J7030

== ENCOUNTER 2019-01-10 18:47 | Emergency (ER) | payer MEDICARE, MEDICAID ==
[~2019-01-10] VITALS: Ht 167.6 cm; Wt 70.7 kg
[~2019-01-10 18:47] MED LIST changes: -RINGERS SOLUTION,LACTATED 1,000 ML IV ONE; -SODIUM CHLORIDE 0.9% 1,000 ML IV ONE
[2019-01-10] MEDS ORDERED: HYDR-4455 PO (18:54)
[2019-01-10 19:53] LABS: BASOPHILS % (AUTO) 1.9 % (0.0-2.0); EOSINOPHILS % (AUTO) 6.3 % (1.0-6.0); HEMOGLOBIN 11.5 g/dL (13.5-17.5); LYMPHOCYTES # (AUTO) 0.8 K/uL (1.0-4.8); LYMPHOCYTES % (AUTO) 18.4 % (22.0-44.0); MEAN CORPUSCULAR HEMOGLOBIN 30.9 pg (26.0-34.0); MEAN CORPUSCULAR HGB CONC 31.8 G/dL (31.0-37.0); MEAN CORPUSCULAR VOLUME 97 fL (80-100); MONOCYTES # (AUTO) 0.5 K/uL (0.1-1.0); MONOCYTES % (AUTO) 10.9 % (2.0-9.0); NEUTROPHILS # (AUTO) 2.7 K/uL (1.8-7.7); NEUTROPHILS % (AUTO) 62.5 % (40.0-70.0); PLATELET COUNT (AUTO) 143 K/uL (150-450); RED BLOOD CELL COUNT(AUTO) 3.71 MIL/uL (4.50-5.90); RED CELL DISTRIBUTION WIDTH 17.2 % (11.5-14.5)
[2019-01-10] MEDS ORDERED: ONDANSETRON HCL 4 MG/2 ML VIAL IVP ONE (20:00)
[2019-01-10 20:06] LABS: ANION GAP 16 mmol/L (8-16); CALCIUM, TOTAL 9.2 mg/dL (8.8-10.5); CARBON DIOXIDE 23 mmol/L (22-29); CHLORIDE 100 mmol/L (98-107); GLOMERULAR FILTR. RATE CALC 9 mL/min (>60); GLUCOSE,RANDOM 91 mg/dL (70-110); POTASSIUM 4.7 mmol/L (3.5-5.1); SODIUM SERUM 139 mmol/L (136-145); UREA NITROGEN, BLOOD 45 mg/dL (7-18)
[2019-01-10 20:12] LABS: ALANINE AMINOTRANSFERASE 10 U/L (12-78); ALBUMIN 3.7 g/dL (3.4-5.0); ALKALINE PHOSPHATASE 213 U/L (46-116); ASPARTATE AMINOTRANSFERASE 24 U/L (15-37); BILIRUBIN,TOTAL 1.5 mg/dL (0.1-1.0); CREATINE KINASE, TOTAL ONLY 28 U/L (39-308); TOTAL PROTEIN, SERUM 7.8 g/dL (6.4-8.2)
[2019-01-10 20:19] LABS: B-TYPE NATRIURETIC PEPTIDE > 5000 pg/mL (0-100); INR 1.1 (0.9-1.1); PROTHROMBIN TIME 11.6 SEC (9.4-11.6)
[2019-01-10] MEDS ORDERED: FentaNYL CITRATE-PF 100 MCG/2 ML VIAL IVP ONE (21:00)
[2019-01-10 22:18] VITALS: BP 144/84
== END 2019-01-10 23:05 | disposition home or self-care (01) ==
LOC: EMS 18:48
DX: T82.838A Hemorrhage due to vascular prosthetic devices, implants and grafts, initial encounter (principal); I10 Essential (primary) hypertension; Z48.01 Encounter for change or removal of surgical wound dressing; Z79.899 Other long term (current) drug therapy; Z79.82 Long term (current) use of aspirin
CPT/HCPCS: 36415; 71045; 80053; 82550; 83880; 84484; 85025; 85610; 85730; 93005; 96374; 96375; 99285; J2405; J3010

== ENCOUNTER 2019-01-15 17:30 | Emergency (ER) | payer MEDICARE, MEDICAID ==
[~2019-01-15] VITALS: Ht 162.6 cm; Wt 68.0 kg
[~2019-01-15 17:30] MED LIST changes: -ALLO100T PO; -AMLO5TAB9 PO; -COLC0.6T76 PO; +HYDR-4455 PO; -ZARO5 PO
[2019-01-15 18:34] VITALS: BP 119/71
== END 2019-01-15 18:44 | disposition home or self-care (01) ==
LOC: EMS 17:33
DX: Z48.01 Encounter for change or removal of surgical wound dressing (principal); I12.0 Hypertensive chronic kidney disease with stage 5 chronic kidney disease or end stage renal disease; N18.6 End stage renal disease; M10.9 Gout, unspecified; Z79.899 Other long term (current) drug therapy